=== PATIENT | female | born 1955 | race Caucasian/White ===

== ENCOUNTER 2023-04-18 17:30 | Emergency (ER) | payer MEDICARE ==
[~2023-04-18] VITALS: Ht 162.6 cm; Wt 97.5 kg
[2023-04-18 18:22] VITALS: BP 176/106
[2023-04-18 19:17] LABS: BASOPHILS % 0.4 % (0.0-2.0); HEMATOCRIT. 34.1 % (36.0-48.0); HEMOGLOBIN. 11.2 g/dL (12.0-16.0); LYMPHOCYTES % 26.1 % (20.0-50.0); MEAN CORPUSCULAR HEMOGLOBIN 28.4 pg (28.0-32.0); MEAN CORPUSCULAR VOLUME 86.1 fL (81.0-99.0); MEAN PLATELET VOLUME 8.9 fl (7.4-10.4); MONOCYTES % 4.6 % (2.0-8.0); NEUTROPHILS % 67.9 % (40.0-76.0); PLATELET 301 x1000/uL (130-400); RED BLOOD CELL COUNT 3.96 mill/uL (4.2-5.4)
[2023-04-18 19:25] LABS: CHLORIDE 108 mEq/L (98-107)
[2023-04-19] MEDS ORDERED: KETOROLAC 30MG/ML VIAL IM ONE (02:30)
[2023-04-19] MEDS ORDERED: ONDANSETRON 4MG ODT PO ONE (03:15)
[2023-04-19] MEDS ORDERED: SULFAMETHOXAZOLE/TRIMETHOPRIM 800/160MG TABLET PO ONE (05:45)
[2023-04-19] MEDS ORDERED: TAMSULOSIN HCL 0.4MG SR CAPSULE PO ONE (05:45)
[2023-04-19] MEDS ORDERED: T3 PO (05:47)
[2023-04-19] MEDS ORDERED: ONDA4TAB50 MT (05:47)
[2023-04-19] MEDS ORDERED: TAMS-11 MT (05:47)
[2023-04-19] MEDS ORDERED: IBUP-2029 MT (05:47)
[2023-04-19] MEDS ORDERED: SULF1TAB48 MT (05:47)
== END 2023-04-19 06:15 | disposition home or self-care (01) ==
LOC: ER 17:30 → EDBD 17:30 → ER 04-19 06:15
DX: N20.1 Calculus of ureter (principal); F32.A Depression, unspecified
CPT/HCPCS: 36415; 74176; 80053; 81025; 83690; 85025; 96372; 99285; J1885; Q0162